=== PATIENT | female | born 1955 | race Caucasian/White ===

== ENCOUNTER 2018-10-04 10:30 | Inpatient (IN) | payer OTHER ==
[~2018-10-04] VITALS: Ht 162.6 cm; Wt 77.1 kg
[2018-10-04] MEDS ORDERED: VALSART PO (12:40)
[2018-10-04] MEDS ORDERED: JANUMET 50-5001 EACH PO (12:41)
[2018-10-04] MEDS ORDERED: AMLODIPINE BESYL5 MG PO (12:41)
[2018-10-04] MEDS ORDERED: ATORVASTATIN CA40 MG PO (12:42)
[2018-10-11] MEDS ORDERED: LOSARTAN-HCTZ1 EAC1 PO (08:33)
[2018-10-12] MEDS ORDERED: DIOVAN40 MG PO (08:11)
== END 2018-10-14 11:56 | disposition home or self-care (01) | DRG 743 ==
LOC: ADM 10:30 → EDSTATUS 10:30 → OB/GYN 10-11 07:00 → O/R 10-11 07:37 → OB/GYN 10-11 10:30
PROVIDERS: ADMIT Obstetrics & Gynecology
PROC: 0UT70ZZ Resection of Bilateral Fallopian Tubes, Open Approach (ICD-10-PCS; 2018-10-11)
PROC: 0UT20ZZ Resection of Bilateral Ovaries, Open Approach (ICD-10-PCS; 2018-10-11)
PROC: 0UT90ZZ Resection of Uterus, Open Approach (ICD-10-PCS; principal; 2018-10-11 07:00)
DX: D25.1 Intramural leiomyoma of uterus (principal); N93.8 Other specified abnormal uterine and vaginal bleeding; N84.0 Polyp of corpus uteri; N83.8 Other noninflammatory disorders of ovary, fallopian tube and broad ligament; N72 Inflammatory disease of cervix uteri; I10 Essential (primary) hypertension